=== PATIENT | female | born 1935 | race Caucasian/White ===

== ENCOUNTER 2018-05-17 22:32 | Inpatient (IN) | payer MEDICARE ==
[2018-05-17] MEDS ORDERED: NS 0.9% 1000 ML*IV.FLUID IV ONE (22:43)
--- NOTE | 2018-05-17 22:49 | ED ---
HPI Febrile Illness - HPI Summary HPI Summary: This patient is an 82 year old F brought in by ambulance from home to [facility] accompanied by her daughter with progressively worsening weakness, fatigue, and breathing. Daughter report vomiting earlier today with labored breathing. Overall she has noticed a decline in her mothers ability to get around the house. Patient denies current pain. - History of Current Complaint Time Seen by Provider: 05/17/18 22:43 Hx Obtained From: Patient, Family/Sourcing Assistant Onset/Duration: Started Days Ago Timing: Constant Initial Severity: Mild Current Severity: Severe Pain Intensity: 0 Pain Scale Used: 0-10 Numeric Associated Signs and Symptoms: SOB, Vomiting, Weakness - Additional Pertinent History Primary Care Physician: [id number] - Allergy/Home Medications Allergies/Adverse Reactions: Allergies Allergy/AdvReac Type Severity Reaction Status Date / Time lidocaine Allergy Mild Rash Verified 05/18/18 00:44 Sulfa (Sulfonamide Allergy Unknown Hives Verified 05/18/18 00:44 Antibiotics) PMH/Surg Hx/FS Hx/Imm Hx Endocrine/Hematology History: Denies: Hx Diabetes, Hx Systemic Lupus Erythematosus Cardiovascular History: Denies: Hx Congestive Heart Failure, Hx Hypertension, Hx Pacemaker/ICD History: Denies: Hx Dialysis, Hx Renal Disease Musculoskeletal History: Reports: Hx Gout Denies: Hx Rheumatoid Arthritis Sensory History: Reports: Hx Contacts or Glasses Denies: Hx Hearing Aid Opthamlomology History: Reports: Hx Contacts or Glasses Neurological History: Reports: Hx Dementia Psychiatric History: Denies: Hx Panic Disorder - Cancer History Cancer Type, Location and Year: LYMPHOMA 2009 ? dates Hx Chemotherapy: Yes - ? last dose [id number] - Surgical History Surgery Procedure, Year, and Place: TONSILS. LT KNEE REPLACEMENT. TUBAL LIGATION - Family History Known Family History: Negative: Cardiac Disease, Hypertension, Diabetes - Social History Alcohol Use: None Substance Use Type: Reports: None Hx Tobacco Use: No Smoking Status (MU): Former Smoker Review of Systems Positive: Fever, Fatigue Positive: Shortness Of Breath Positive: Vomiting Positive: Weakness All Other Systems Reviewed And Are Negative: Yes Physical Exam - Summary Physical Exam Summary: Appearance: ill appearing elderly women, quite slender almost cachectic with almost labored breating. Vital signs including hypotensive, tachycardic, and febrile Skin: Warm, dry, no obvious rash Eyes: sclera anicteric, no conjunctival pallor ENT: mucous membranes moist, pharynx appears normal Neck: Supple, nontender Respiratory: Clear to auscultation, diminish breath sounds on the right, breathing appears labored Cardiovascular: Tachycardic rate, Normal S1, S2. No murmurs. Normal distal pulses in tibial and radial bilaterally. Abdomen: Soft, nontender, normal active bowel sounds present Musculoskeletal: mild lower extremity edema non pitting, Neurological:awake and can answer simple questions, mentation is normal, speech is fluent and appropriate Psychiatric: affect is normal, does not appear anxious or depressed Triage Information Reviewed: Yes Vital Signs Reviewed: Yes Diagnostics - Laboratory Result Diagrams: 05/17/18 23:38 05/17/18 22:53 Lab Statement: Any lab studies that have been ordered have been reviewed, and results considered in the medical decision making process. - Radiology Cxr Radiology Interpretation Completed By: ED Physician Summary of Radiographic Findings: No acute disease. - EKG 2249 Cardiac Rate: Tachycardia - 121 EKG Rhythm: Sinus Rhythm Summary of EKG Findings: Probable right ventricular hypertrophy, ST is otherwise normal Course/Dx - Course Course Of Treatment: 82 year old F brought in by ambulance from home to [facility] accompanied by her daughter with progressively worsening weakness, fatigue, and breathing. Daughter report vomiting earlier today with labored breathing. Overall she has noticed a decline in her mothers ability to get around the house. Patient denies current pain. Upon exam patient appears ill and frail on gustavo borderline of cachectic. Her breathing is labored with diminished breath sound on the right. Patient is hypotensive, tachycardic, and febrile. She is able to answer simple questions. Sepsis protocol is immediately initiated at 22 :43. Patient is given 1500mls of IVF at 2243, iwth 50mls of ceftriaxone sodium and 250mls of azithromycin both at 2251. Bloodwork reveals WBC of 28.5, carbon dioxide of 14, and lactic acid of 5.2. UA is indicative of infection. Influenza testing is negative. CXR reveals no acute disease. EKG is tachycardic. Patient is additionally given another 1000mls of IV fluids at 0019 and again at 0121. 4000mcgs of Norepinepherine at 0230. Case discussed with hospitalist, Dr. Talamantes , who accepts for admission at 2338. - Diagnoses Provider Diagnoses: Sepsis, Urinary tract infection - Critical Care Time Critical Care Time: 30-74 min - 35 minutes Discharge - Sign-Out/Discharge Documenting (check all that apply): Patient Departure - admit - Discharge Plan Condition: Guarded Disposition: ADMITTED TO [facility] - Billing Disposition and Condition Condition: GUARDED Disposition: Admitted to [facility] - Attestation Statements Document Initiated by Arture: Yes Documenting Scribe: Sondra Jacobsen Provider For Whom Feli is Documenting (Include Credential): Micheal Lowe MD Scribdafne Attestation: Sondra Terry, artured for Micheal Lowe MD on 05/18/18 at 0508. Scribe Documentation Reviewed: Yes Provider Attestation: The documentation as recorded by the Sondra albrecht accurately reflects the service I personally performed and the decisions made by Micheal avila MD Status of Scribe Document: Viewed
[2018-05-17] MEDS ORDERED: cefTRIAXone(*) 1 GM in NS 0.9% 50 ML* 50 ML IVPB ONE (22:51)
[2018-05-17] MEDS ORDERED: Azithromycin IV(*) 500 MG in NS 0.9% 250 ML* 250 ML IVPB ONE (22:51)
--- OUTSIDE RECORDS SUMMARY | 2018-05-17 23:07 | XMS REPORT | Continuity of Care Document ---
:1935 External Reference #:[id number] Author Name Jania Draper Care Team Providers Name Role Phone Eamon Talamantes MD Primary Care Physician Unavailable Payers Type Date Identification Numbers Payment Provider Subscriber Policy Number: [id number] [facility] Medicare Solutions Ravin Mejia Group Number: [id number] [address] [address] PayID: [id number] [place] [address] Expires: 2013 Policy Number: [id number] Of [facility] Ravin Mejia PayID: [id number] [address] [address] [place] [address] Expires: 2013 Policy Number: [id number] Medicare Ravin Mejia PayID: [id number] [address] [place] [address] Advance Directives Description No Information Available Problems Date Description Provider Status Onset: 02/23/2016 Paroxysmal ventricular Eamon Talamantes, Active tachycardia Joel.Zach,FACP Onset: 02/23/2016 Primary degenerative dementia of Eamon Talamantes, Active the Alzheimer type, senile onset Joel.Zach,FACP Onset: 02/23/2016 T-cell lymphoma (clinical) Suman Waterman M.D.,FACP Onset: 07/14/2016 Paroxysmal supraventricular Eamon Talamantes, Active tachycardia M.DTimothy,FACP Onset: 07/23/2016 Hypothyroidism Suman Waterman M.D.,FACP Onset: 01/16/2018 Major depressive disorder, single Gee Maynard M.D. Active episode, unspecified Onset: 02/23/2016 Dementia Eamon Talamantes, Inactive GREY Patel Inactive: 02/23/2016 Family History Date Family Member(s) Problem(s) Comments General Cancer Father due to [place] () Father Heart Disease Mother Diabetes Type II : (age 82 Mother due to Diabetes Years) Second Daughter due to Lung () - smoker Cancer Siblings 7 3 now First Brother Coronary Artery Disease (CAD) First Brother due to Natural () Causes : (age 36 Second Brother due to Accidental Years) First Sister due to Diabetes () Second Sister Diabetes Type II Second Sister due to Dementia () - PSP Third Sister Parkinson's Disease Social History Type Date Description Comments Sex Unknown Marital Status Lives With 07/14/2016 Alone Occupation Retired oliving machine operator, [employer] Tobacco Use Start: Unknown Never Smoked Cigarettes Smoking Status Reviewed: 05/17/18 Never Smoked Cigarettes ETOH Use 02/23/2016 Denies alcohol use Tobacco Use Start: Unknown Patient has never smoked Recreational Drug Use Denies Drug Use Exercise Type/Frequency Does not exercise Allergies, Adverse Reactions, Alerts Date Description Reaction Status Severity Comments 02/23/2016 Sulfa Antibiotics skin rash Active Mild 06/21/2017 Sodium Active 04/21/2015 NKDA Inactive Medications Medication Date Status Form Strength Qnty SIG Indications Ordering Provider Escitalopram 05/17/ Active Tablets 5mg 30tabs 1 by mouth F32.9 Keren Oxalate 2019 every day MD Brenden Depend 05/17/ Active Misc 100uni for use [facility] 2019 ts three MD Brenden times a day Hand Held 05/17/ Active Misc 1units use wand Parkinsor Shower [place] 2019 daily when MD Brenden showering Donut Pillow 01/16/ Active 1units Use as M54.5 Gee Maynard M.D. Levothyroxine 11/20/ Active Tablets 75mcg 15tabs 1/2 by Eamon Martino 2018 mouth Zach Talamantes, every day. BAUTISTA PatelP Metoprolol 02/22/ Active Tablets ER 25mg 45tabs take Eamon Succinate ER 2016 24HR one-half Zahc Talamantes, tablet by Amanda,FACP mouth once daily Aspirin 02/18/ Active Tablets DR 81mg 30tabs 1 by mouth Other 2015 every day Ordering Provider Namenda XR 06/09/ Active Caps ER 28mg 90caps take one G30.1 Eamon 2015 24HR capsule by Zach Talamantes, mouth once M.D.,FACP daily Osteo Bi-Flex / Active Tablets 250-200mg 2 by mouth Unknown Regular 0000 every day Strength Meclizine HCL / Active Tablets 12.5mg 1 tab by Unknown 0000 mouth every 8 hours as needed Celery Seed / Active Tablet 2 po at Unknown 0000 every meal Black Vargas / Active Tablet 2 at every Unknown Concentrate 0000 meal. Iron / Active Tablets 325(65Fe) 1 by mouth Unknown 0000 mg every day Arthritis Pain / Active Tablets ER 650mg 2 by mouth Unknown Relief 0000 every day Macrobid 04/24/ Hx Capsules 100mg 14caps 1 by mouth Eamon 2018 - twice a Zach Talamantes, 05/01/ day MSoumya,FACP 2018 Escitalopram 01/16/ Hx Tablets 5mg 30tabs 1 by mouth F32.9 Gee Oxalate 2018 - every day Luisikara 04/10/ , Amanda 2018 Doxycycline 03/19/ Hx Capsules 100mg 2caps 2 cap one S10.86xA [place] Monohydrate 2017 - dose (pt Pachikara 04/18/ is not , M.DTimothy 2017 currently taking 04/02/17) Levothyroxine 07/23/ Hx Tablets 25mcg 30tabs Take One Eamon Sodium 2017 - Tablet By Zach Talamantes, 11/20/ Mouth Once M.D.,FACP 2018 Daily Vitamin C / Hx Chewtabs 500mg 2 by mouth Unknown 0000 - every day 2017 Medications Administered in Office Medication Date Status Form Strength Qnty SIG Indications Ordering Provider Triamcinolone 06/21/ Administered Injection Zaneb (Kenalog) 2017 MD Angelica Immunizations CPT Code Status Date Vaccine Lot # [id number] Given 03/22/2018 Influenza Virus Vaccine, Quadrivalent, Split, Preservative Free 04603 Given 03/22/2018 Pneumococcal Conjugate Vaccine 13 Valent For Intramuscular Use 70426 Given 03/22/2018 Pneumococcal Conjugate Vaccine 13 Valent For Intramuscular Use 19100 Given 03/22/2018 Fluzone High Dose 79031 Given 04/18/2017 Pneumococcal Conjugate Vaccine 13 Valent For [id number] Intramuscular Use 31463 Given 03/09/2017 Influenza Virus Vaccine, Quadrivalent, Split, Preservative Free 79733 Given 02/20/2016 Pneumonia Vaccine 82286 Given 02/20/2016 Influenza Virus Vaccine, Quadrivalent, Split, Preservative Free Vital Signs Date Vital Result Comment 05/17/2018 9:36am Height 60.25 inches 5'0.25" Weight 101.00 lb Heart Rate 49 /min BP Systolic 90 mmHg BP Diastolic 46 mmHg O2 % BldC Oximetry 85 % BMI (Body Mass Index) 19.6 kg/m2 04/11/2018 12:54pm Height 60.25 inches 5'0.25" Weight 101.00 lb with boots Heart Rate 82 /min BP Systolic Sitting 104 mmHg lue reg cuff BP Diastolic Sitting 70 mmHg lue reg cuff BP Systolic Standing 100 mmHg lue reg cuff BP Diastolic Standing 68 mmHg lue reg cuff BMI (Body Mass Index) 19.6 kg/m2 Ejection Fraction 45-50% echo. 04/30/2017 01/16/2018 9:03am Height 60.25 inches 5'0.25" Weight 100.00 lb Heart Rate 98 /min BP Systolic 122 mmHg BP Diastolic 78 mmHg O2 % BldC Oximetry 100 % BMI (Body Mass Index) 19.4 kg/m2 12/11/2017 8:59am Height 60.25 inches 5'0.25" Weight 102.38 lb Heart Rate 68 /min BP Systolic 100 mmHg BP Diastolic 62 mmHg BMI (Body Mass Index) 19.8 kg/m2 11/20/2017 10:13am Height 60.25 inches 5'0.25" Weight 102.00 lb Heart Rate 80 /min BP Systolic Sitting 110 mmHg BP Diastolic Sitting 68 mmHg Body Temperature 95.6 F O2 % BldC Oximetry 96 % BMI (Body Mass Index) 19.8 kg/m2 06/21/2017 11:09am Height 61 inches 5'1" Weight 104.00 lb Heart Rate 73 /min BP Systolic 102 mmHg BP Diastolic 80 mmHg Respiratory Rate 17 /min Body Temperature 97.5 F Pain Level 4 BMI (Body Mass Index) 19.6 kg/m2 06/05/2017 1:43pm Weight 104.00 lb Heart Rate 90 /min BP Systolic Sitting 100 mmHg BP Diastolic Sitting 58 mmHg Body Temperature 96.7 F O2 % BldC Oximetry 95 % 04/18/2017 8:43am Weight 106.00 lb Heart Rate 84 /min BP Systolic Sitting 116 mmHg BP Diastolic Sitting 84 mmHg Body Temperature 96.5 F O2 % BldC Oximetry 96 % 04/02/2017 8:24am Height 61 inches 5'1" Weight 106.00 lb with shoes Heart Rate 78 /min BP Systolic Sitting 126 mmHg LA reg cuff BP Diastolic Sitting 78 mmHg LA reg cuff BMI (Body Mass Index) 20.0 kg/m2 Ejection Fraction 50%-55% echo 02/18/16 03/19/2017 1:34pm Heart Rate 73 /min BP Systolic Sitting 110 mmHg BP Diastolic Sitting 58 mmHg Body Temperature 97.1 F O2 % BldC Oximetry 97 % 02/20/2017 10:48am Height 60.25 inches 5'0.25" Weight 104.00 lb Heart Rate 88 /min BP Systolic Sitting 100 mmHg BP Diastolic Sitting 64 mmHg Body Temperature 97.1 F O2 % BldC Oximetry 96 % BMI (Body Mass Index) 20.1 kg/m2 10/12/2016 9:43am Height 60.25 inches 5'0.25" Weight 107.12 lb Heart Rate 84 /min BP Systolic Sitting 106 mmHg BP Diastolic Sitting 68 mmHg Respiratory Rate 14 /min BMI (Body Mass Index) 20.7 kg/m2 07/14/2016 12:43pm Height 60.25 inches 5'0.25" Weight 105.50 lb Heart Rate 74 /min BP Systolic Sitting 112 mmHg BP Diastolic Sitting 64 mmHg Body Temperature 97.7 F O2 % BldC Oximetry 96 % BMI (Body Mass Index) 20.4 kg/m2 03/10/2016 10:51am Weight 105.38 lb Heart Rate 79 /min BP Systolic Sitting 96 mmHg LA Regular Cuff BP Diastolic Sitting 60 mmHg LA Regular Cuff BP Systolic Standing 102 mmHg LA Regular Cuff BP Diastolic Standing 60 mmHg LA Regular Cuff O2 % BldC Oximetry 97 % 02/23/2016 8:19am Height 60 inches 5'0" Weight 111.50 lb Heart Rate 82 /min BP Systolic Sitting 104 mmHg BP Diastolic Sitting 62 mmHg Body Temperature 96.9 F O2 % BldC Oximetry 98 % BMI (Body Mass Index) 21.8 kg/m2 12/07/2015 9:08am Height 61.5 inches 5'1.50" Weight 109.00 lb Heart Rate 80 /min BP Systolic Sitting 110 mmHg BP Diastolic Sitting 64 mmHg Respiratory Rate 16 /min BMI (Body Mass Index) 20.3 kg/m2 06/09/2015 2:06pm Height 61.5 inches 5'1.50" Weight 108.00 lb Heart Rate 68 /min BP Systolic Sitting 104 mmHg BP Diastolic Sitting 70 mmHg Respiratory Rate 14 /min BMI (Body Mass Index) 20.1 kg/m2 04/21/2015 2:49pm Height 61.5 inches 5'1.50" Weight 110.00 lb Heart Rate 80 /min BP Systolic Sitting 120 mmHg BP Diastolic Sitting 72 mmHg Respiratory Rate 16 /min BMI (Body Mass Index) 20.4 kg/m2 Results Test Date Facility Test Result H/L Range Note Urinalysis Profile 04/23/2018 [facility] Urine Color [place] [address] [place] [address] [phone] Urine Appearance Turbid Urine Specific [place] 1.018 N 1.010-1.030 Urine pH 5.0 N 5-9 Urine Urobilinogen Negative Negative Urine Ketones Negative Negative Urine Protein Negative Negative Urine Leukocytes 2+ Abnormal Negative Urine Blood 1+ Abnormal Negative * * Abnormal Negative 1 Urine Nitrite Negative Negative Urine Bilirubin Negative Negative Urine Glucose Negative Negative Urine White Blood Cell 3+(>20/hpf) Abnormal Absent Urine Red Blood Cell 1+(3-5/hpf) Abnormal Absent Urine Bacteria 2+ Abnormal Absent Urine Squamous Epithelial Cell Present Abnormal Absent Urine Calcium Oxalate Cryst Present Abnormal Absent Urine Culture And 04/23/2018 [facility] Urine Culture SEE RESULT [address] [place] [address] [phone] Laboratory test 02/21/2018 [facility] TSH (Thyroid 1.95 mcIU/mL N 0.34-[address]orm) .60 [place] [address] [phone] Free T4 (Free Thyroxine) 1.06 ng/dL N 0.61-1.12 CBC Auto Diff 02/21/2018 [facility] White Blood 9.4 10^3/uL N 3.5-10.[address] [place] [address] [phone] Red Blood Count 3.45 10^6/uL Low 4.00-5.40 Hemoglobin 10.7 g/dL Low 12.0-16.0 Hematocrit 33 % Low 35-47 Mean Corpuscular Volume 94 fL N 80-97 Mean Corpuscular Hemoglobin 31 pg N 27-31 Mean Corpuscular HGB Conc 33 g/dL N 31-36 Red Cell Distribution Width 14 % N 10.5-15 Platelet Count 171 10^3/uL N 150-450 Mean Platelet Volume 7.9 um3 N 7.4-10.4 Abs Neutrophils 5.8 10^3/uL N 1.5-7.7 Abs Lymphocytes 2.1 10^3/uL N 1.0-4.8 Abs Monocytes 1.4 10^3/uL High 0-0.8 Abs Eosinophils 0.1 10^3/uL N 0-0.6 Abs Basophils 0 10^3/uL N 0-0.2 Abs Nucleated RBC 0 10^3/uL Granulocyte % 61.1 % N 38-83 Lymphocyte % 22.7 % Low 25-47 Monocyte % 14.8 % High 0-7 Eosinophil % 1.0 % N 0-6 Basophil % 0.4 % N 0-2 Nucleated Red Blood Cells % 0 Laboratory 11/16/2017 [facility] TSH (Thyroid 5.98 High 0.34- 5.60 3 test finding [address] Stim Horm) mcIU/[place] [address] [phone] Lipid Profile 11/16/2017 [facility] Triglycerides 183 mg/dL 4 (Trig/Chol/HDL [address] ) [place] [address] [phone] Cholesterol 143 mg/dL 5 HDL Cholesterol 24.9 mg/dL 6 LDL Cholesterol 82 mg/dL 7 Laboratory test 11/16/2017 [facility] Glucose 88 mg/dL N 70- 100 [address] [place] [address] [phone] CBC Auto Diff 06/05/2017 [facility] White Blood 10.8 N 3.5- 10.[address] Count 10^3/[place] [address] [phone] Red Blood Count 3.49 10^6/uL Low 4.0-5.4 Hemoglobin 10.9 g/dL Low 12.0-16.0 Hematocrit 33 % Low 35-47 Mean Corpuscular Volume 93 fL N 80-97 Mean Corpuscular Hemoglobin 31 pg N 27-31 Mean Corpuscular HGB Conc 34 g/dL N 31-36 Red Cell Distribution Width 13 % N 10.5-15 Platelet Count 283 10^3/uL N 150-450 Mean Platelet Volume 8 um3 N 7.4-10.4 Abs Neutrophils 5.7 10^3/uL N 1.5-7.7 Abs Lymphocytes 3.0 10^3/uL N 1.0-4.8 Abs Monocytes 2.0 10^3/uL High 0-0.8 Abs Eosinophils 0.1 10^3/uL N 0-0.6 Abs Basophils 0.1 10^3/uL N 0-0.2 Abs Nucleated RBC 0 10^3/uL Granulocyte % 52.3 % N 38-83 Lymphocyte % 28.0 % N 25-47 Monocyte % 18.7 % High 1-9 Eosinophil % 0.5 % N 0-6 Basophil % 0.5 % N 0-2 Nucleated Red Blood Cells % 0 Laboratory test 06/05/2017 [facility] Erythrocyte Sed 81 mm/Hr High 0-[address] [place] [address] [phone] Basic Metabolic 06/05/2017 [facility] Sodium 139 N 133-[address] mmol/[place] [address] [phone] Potassium 4.6 mmol/L N 3.5-5.0 Chloride 106 mmol/L N 101-111 Co2 Carbon Dioxide 25 mmol/L N 22-32 Anion Gap 8 mmol/L N 2-11 Glucose 95 mg/dL N 70-100 Blood Urea Nitrogen 25 mg/dL High 6-24 Creatinine 1.30 mg/dL High 0.51-0.95 BUN/Creatinine Ratio 19.2 N 8-20 Calcium 9.1 mg/dL N 8.6-10.3 Egfr Non- 39.5 >60 Egfr 50.8 >60 9 Lyme Western 04/18/2017 [facility] Lyme Disease Positive Negative Blot [address] [place] [place] [address] [phone] Lyme Disease IgG Bands Present See Comment kDa 10 Lyme Disease IgM Ab WB Negative Negative Lyme Disease IgM Bands Present No bands detecte <SEE NOTE> kDa 11 Lyme Disease Interpretation See Comment 12 Laboratory 04/18/2017 [facility] Lyme Disease Positive Negative 13 test finding [facility] [place] [address] [phone] Laboratory 10/26/2016 [facility] TSH (Thyroid 3.71 N 0.34- 5.[address] Stim Horm) mcIU/[place] [address] [phone] Lipid Profile 07/22/2016 [facility] Triglycerides 206 mg/dL N 14 (Trig/Chol/HDL [facility] ) [place] [address] [phone] Cholesterol 124 mg/dL N 15 HDL Cholesterol 22.4 mg/dL N 16 LDL Cholesterol 60 mg/dL N 17 Basic Metabolic Panel 07/22/2016 [facility] Sodium 137 mmol/L N 133-145 [place] [address] [phone] Potassium 4.0 mmol/L N 3.5-5.0 Chloride 105 mmol/L N 101-111 Co2 Carbon Dioxide 28 mmol/L N 22-32 Anion Gap 4 mmol/L N 2-11 Glucose 90 mg/dL N 70-100 Blood Urea Nitrogen 23 mg/dL N 6-24 Creatinine 1.00 mg/dL High 0.51-0.95 BUN/Creatinine Ratio 23.0 High 8-20 Calcium 8.8 mg/dL N 8.6-10.3 Egfr Non- 53.6 N >60 Egfr 69.0 N >60 18 Laboratory test 07/22/2016 [facility] TSH (Thyroid 6.32 High 0.34-5.60 [address] [facility] [address] Stim Horm) mcIU/[place] [address] [phone] Laboratory test 04/21/2015 [facility] TSH (Thyroid 6.93 ?IU/mL High 0.34-5.60 [address] [facility] [address] Stim Horm) [place] [address] [phone] Vitamin B12 363 pg/mL N 180-914 21 1 *Ascorbic acid is present which may interfere with detection of blood. 2 SEE RESULT BELOW Name: RAVIN MEJIA : [address]: Lucina Talamantes MD Acct: [id number] Unit: [id number] AGE: 82 Location: [facility] Re04/23/18 SEX: F Status: REG REF SPEC: [id number] SUE: 04/23/[address]: Eamon Talamantes MD REQ: [id number] RECD: 04/23/18 STATUS: COMP _ SOURCE: URINE SPDESC: ORDERED: Urine Culture Procedure Result Reported Site Urine Culture Final 04/25/18- 0951 ML Organism 1 ESCHERICHIA COLI [place] Count >100,000 (Many) CFU/ML 1. ESCHERICHIA COLI M.I.C. RX --------- ------ Ampicillin <=2 S Cefazolin <=4 S Cefepime <=1 S Ceftriaxone <=1 S Ciprofloxacin <=0.25 S Gentamicin <=1 S Levofloxacin <=0.12 S Meropenem <=0.25 S Nitrofurantoin <=16 S Tetracycline <=1 S Pipercillin/Tazobactam <=4 S Trimethoprim/Sulfamethoxazole <=20 S Amoxicillin/Clavulanic Acid <=2 S Aztreonam <=1 S Contact the Microbiology Department for any additional antibiotic reporting. * ML - Main Lab . END OF REPORT DEPARTMENT OF PATHOLOGY, [address] [place] [address] Bud Florence M.D. Director [facility] # [id number] 3 FASTING 10 HOUR 4 Desirable: <150 Borderline High: 150-199 High: 200-499 Very High: >500 5 Desirable: <200 Borderline High: 200-239 High: >239 6 Low: <40 Desirable: 40-60 High: >60 7 Desirable: <100 Near Optimal: 100-129 Borderline High: 130-159 High: 160-189 Very High: >189 8 FASTING 10 HOUR 9 Because ethnic data is not always readily available, this report includes an eGFR for both -Americans and non- Americans. The National Kidney Disease Education Program (NKDEP) does not endorse the use of the MDRD equation for patients that are not between the ages of 18 and 70, are , have extremes of body size, muscle mass, or nutritional status, or are non- or non-. 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 ADDITIONAL INFORMATION CDC criteria require >=5 bands for IgG or >=2 bands for IgM for the Immunoblot to be considered positive. Bands (e.g.,p41) may be detected in patients without Lyme disease, and patterns not meeting the CDC criteria should be interpreted with caution. Immunoblot should be ordered only on specimens that are positive or equivocal by a FDA-licensed Lyme disease antibody screening test (e.g., EIA). Test Performed by: [place] [id number] 13 Not diagnostic. Supplemental testing ordered by reflex. Test Performed by: [place] [id number] 14 Desirable <150 Borderline high 150-199 High 200-499 Very High >500 15 Desirable <200 Borderline high 200-239 High >239 16 Low <40 Desirable: 40-60 High: >60 17 Desirable: <100 mg/dL Near Optimal: 100-129 mg/dL Borderline High: 130-159 mg/dL High: 160-189 mg/dL Very High: >189 mg/dL 18 Because ethnic data is not always readily available, this report includes an eGFR for both -Americans and non- Americans. The National Kidney Disease Education Program (NKDEP) does not endorse the use of the MDRD equation for patients that are not between the ages of 18 and 70, are , have extremes of body size, muscle mass, or nutritional status, or are non- or non-. According to the National Kidney Foundation, irrespective of diagnosis, the stage of the disease is based on the level of kidney function: Stage Description GFR(mL/min/1.73 m(2)) 1 Kidney damage with normal or decreased GFR 90 2 Kidney damage with mild decrease in GFR 60-89 3 Moderate decrease in GFR 30-59 4 Severe decrease in GFR 15-29 5 Kidney failure <15 (or dialysis) 19 FASTING 10 HOUR 20 Copy Result to: ISIDORO MELTON ([id number]) 21 Normal Range 180 to 914 Indeterminate Range 145 to 180 Deficient Range <145 Procedures Date Code Description Status 04/11/2018 48338 EKG Tracing & Interpretation Completed 06/21/2017 93277 Inject/Drain Joint/Bursa Major W/O US Completed 04/30/2017 83458 ECHO Transthoracic, Real-Time 2D With Doppler And Color Completed Flow 04/30/2017 76439 ECHO Transthoracic, Real-Time 2D With Doppler And Color Completed Flow 04/02/2017 96078 EKG Tracing & Interpretation Completed 03/10/2016 17466 EKG Tracing & Interpretation Completed 02/29/2016 71993 Holter Monitor Review (24 hr)dr review & interp only Completed 02/28/2016 03553 ECG Monitor/Recording W/Visual Superimposition Scanning Completed 02/18/2016 78843 ECHO Transthorasic Realtime 2D W Doppler & Color Flow Hosp Completed 01/11/2009 63592 ECHO Transthorasic Realtime 2D W Doppler & Color Flow Hosp Completed Encounters Type Date Location Provider Dx Diagnosis Office Visit 05/17/2018 [facility] Internal Keren Wilcox MD R62.7 Adult failure to 9:40a Medicine - thrive [place] E03.9 Hypothyroidism, unspecified I47.1 Supraventricular tachycardia G30.1 Alzheimer's disease with late onset K59.00 Constipation, unspecified F33.9 Major depressive disorder, recurrent, unspecified Office Visit 04/11/2018 Kathy Jimenez I42.9 Cardiomyopathy, 1:20p Cardiology Of Amanda Broderick unspecified [facility] R94.31 Abnormal electrocardiogram [ECG] [EKG] R06.02 Shortness of breath I34.0 Nonrheumatic mitral (valve) insufficiency I35.1 Nonrheumatic aortic (valve) insufficiency Office Visit 01/16/2018 9:00a [facility] Internal Gee Maynard, M54.5 Low back Medicine - M.DTimothy pain [place] F32.9 Major depressive disorder, single episode, unspecified Office Visit 12/11/2017 Neurohospitalist Sterling Jimenez G30.1 Alzheimer's 9:00a Clinic Amanda Luis disease with late onset Office Visit 11/20/2017 [facility] Internal Medicine Eamon Serrano Z00.01 Encounter for 10:20a - Barbara Talamantes general adult Joel.Zach,FACP medical exam w abnormal findings M75.122 Complete rotatr-cuff tear/ruptr of left shoulder, not trauma E03.9 Hypothyroidism, unspecified C84.Z8 Oth mature T/NK-cell lymphomas, lymph nodes mult site Office Visit 06/21/2017 Orthopedic Brenda Dominguez, 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 shoulder M75.122 Complete rotatr-cuff tear/ruptr of left shoulder, not trauma M25.412 Effusion, left shoulder Office Visit 06/05/2017 1:40p [facility] Internal Eamon Serrano R53.83 Other fatigue Jasmina Talamantes M.D.,FACP [place] R05 Cough M75.52 Bursitis of left shoulder Office Visit 04/18/2017 8:40a [facility] Internal Eamon Serrano A69.20 Lyme disease, [facility] M.D.,[facility] unspecified [address] D48.5 Neoplasm of uncertain behavior of skin Z23 Encounter for immunization Office Visit 04/02/2017 Gigi Crocker STimothy I42.9 Cardiomyopathy, 8:40a Cardiology Amanda Broderick unspecified I45.10 Unspecified right bundle-branch block R94.31 Abnormal electrocardiogram [ECG] [EKG] R53.83 Other fatigue R06.02 Shortness of breath 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 other specified [address] part of neck, init encntr Office Visit 02/20/2017 [facility] Internal Do Ramirez, J06.9 Acute upper 10:50a Jasmina Conley M.D. respiratory [place] infection, unspecified H61.23 Impacted cerumen, bilateral Office Visit 10/12/2016 Neurohospitalist Sterling Jimenez G30.1 Alzheimer's 9:45a Clinic Amanda Luis disease with late onset Office Visit 07/14/2016 [facility] Internal Medicine Eamon Serrano Z00.01 Encounter for 1:00p - [place] [facility] adult Joel.Zach,FACP medical exam w abnormal findings I47.1 Supraventricular tachycardia G30.1 Alzheimer's disease with late onset C84.Z8 Oth mature T/NK-cell lymphomas, lymph nodes [facility] E03.9 Hypothyroidism, unspecified Office Visit 03/10/2016 Cardiology Obi S. I47.1 Supraventricular 11:00a Services Of Genoveva Broderick M.D. tachycardia AT [place] R55 Syncope and collapse I42.9 Cardiomyopathy, unspecified I45.10 Unspecified right bundle-branch block R94.31 Abnormal electrocardiogram [ECG] [EKG] Office Visit 02/23/2016 8:00a [facility] Internal Eamon Serrano I47.2 Ventricular Medicine - Amanda Talamantes,FACP tachycardia [address] G30.1 Alzheimer's disease with late onset C84.Z8 Oth mature T/NK-cell lymphomas, [place] nodes [facility] [place] Office Visit 02/19/2016 4:27p [facility] Eamon Serrano R55 [facility],jose Talamantes M.D.,[facility] collapse Hospitalists I47.1 Supraventricular tachycardia R79.89 Other specified abnormal findings of blood chemistry Office Visit 02/18/2016 4:26p [facility] Shannon Piña, R55 [facility],jose Patel collapse Hospitalists R74.8 Abnormal levels of other serum enzymes R79.89 Other specified abnormal findings of blood chemistry I47.1 Supraventricular tachycardia Office Visit 02/18/2016 10:35a [facility] Obi STimothy R55 Syncope and Amanda Broderick collapse I47.1 Supraventricular tachycardia I51.9 Heart disease, unspecified Office Visit 02/17/2016 4:25p [facility] Maggie Frazier R55 [facility],jose Sarabia NP collapse Hospitalists R74.8 Abnormal levels of other serum enzymes R79.89 Other specified abnormal findings of blood chemistry F03.90 Unspecified dementia without behavioral disturbance Office Visit 12/07/2015 9:00a [facility] Sterling Jimenez G30.1 [facility] Amanda Luis disease with late onset Office Visit 06/09/2015 2:30p [facility] Sterling Jimenez G30.1 [facility] Amanda Luis disease with late onset Office Visit 04/21/2015 3:00p [facility] Sterling Jimenez F03.90 Unspecified [facility] Amanda Luis dementia without behavioral disturbance Plan of Treatment Future Appointment(s):12/11/2018 9:15 am - Sterling Luis M.D. at [facility]05/17/2018 - Keren Wilcox, MDR62.7 Adult failure to thriveReferral:[facility]/ Nurse SpecE03.9 Hypothyroidism, unspecifiedFollow up:Continue same dose medsI47.1 Supraventricular tachycardiaFollow up:Continue [id number] Alzheimer's disease with late onsetFollow up:F/U with in home evalK59.00 Constipation, unspecifiedFollow up:Use over the counter colace to helpF33.9 Major depressive disorder, recurrent, unspecifiedFollow up:Start antidepression medication F/U 3 months
[2018-05-17 23:22] LABS: Urine Appearance Cloudy; Urine Bacteria 2+ (Absent); Urine Bilirubin Negative (Negative); Urine Blood 2+ (Negative); Urine Color Amber; Urine Glucose Negative (Negative); Urine Granular Casts Present (Absent); Urine Ketones Negative (Negative); Urine Nitrite Negative (Negative); Urine Protein Negative (Negative); Urine Red Blood Cell 2+(6-10/hpf) (Absent); Urine Specific Gravity 1.016 (1.010-1.030); Urine Urobilinogen Negative (Negative); Urine White Blood Cell 3+(>20/hpf) (Absent)
[2018-05-17] MEDS ORDERED: NS 0.9% 1000 ML* 1,000 ML IV SCH (23:45)
[2018-05-18 00:16] LABS: Albumin 2.5 g/dL (3.2-5.2); Albumin/Globulin Ratio 1.2 (1-3); BUN/Creatinine Ratio 36.7 (8-20); Calcium 7.9 mg/dL (8.6-10.3); EGFR Non-African American 33.4 (>60); Globulin 2.1 g/dL (2-4); Total Bilirubin 0.5 mg/dL (0.2-1.0); Total Protein 4.6 g/dL (6.4-8.9)
[2018-05-18 00:19] LABS: Hematocrit 26 % (35-47); Mean Corpuscular HGB Conc 31 g/dl (31-36); Mean Corpuscular Hemoglobin 32 pg (27-31); Mean Corpuscular Volume 103 fL (80-97); Mean Platelet Volume 9.9 fL (7.4-10.4); Platelet Count 65 10^3/ul (150-450); Red Blood Count 2.53 10^6/ul (4.00-5.40); Red Cell Distribution Width 20 % (10.5-15); White Blood Count 28.5 10^3/ul (3.5-10.8)
[2018-05-18] MEDS ORDERED: NS 0.9% 1000 ML* 1,000 ML IV SCH ×2 (00:19→01:21)
[2018-05-18 00:24] LABS: Activated Partial Thrombo Time 47.7 seconds (26.0-36.3); INR 1.33 (0.77-1.02)
[2018-05-18 00:41] LABS: Potassium 5.2 mmol/L (3.5-5.0)
[2018-05-18 00:57] LABS: Immature Granulocytes 9 % (0-9); Lymphocytes % 16 %; Metamyelocytes % 2 % (0-2); Monocytes % 4 %; Myelocytes % 2 % (0-1); Neutrophil % 71 %
[2018-05-18 01:00] LABS: ABS Neutrophils 22.8 10^3/ul (1.5-7.7)
[2018-05-18] MEDS ORDERED: Norepinephrine 16MCG/ML IVPRE* 4,000 MCG/250 ML BAG IV SCH ×3 (02:30)
[2018-05-18] MEDS ORDERED: Norepinephrine VIAL* 4 MG in NS 0.9% 250 ML* 246 ML IVPB SCH ×3 (03:00→07:00)
[2018-05-18] MEDS ORDERED: VASOPRESSIN 20 UNITS/ML 1 ML VIAL ONE (03:45)
[2018-05-18] MEDS ORDERED: Vasopressin* 100 UNITS in D5W 250 ML BAG IVPB SCH (04:00)
--- NOTE | 2018-05-18 04:29 | OP ---
Operative Report - Blank - Operative Report Date of Operation: 05/18/18 Note: Central Venous Catheter (CVC, Central Line) Placement Date: 05/18/18 Time: 4:00am Indication: Hemodynamic monitoring/Intravenous access Attending: Regino Oneal time-out was completed verifying correct patient, procedure, site, positioning , and special equipment if applicable. The patient was placed in a dependent position appropriate for central line placement based on the vein to be cannulated. The patients left neck was prepped and draped in sterile fashion. 1 % Lidocaine was used to anesthetize the surrounding skin area. A triple lumen 7- Panamanian catheter was introduced into the the internal jugular using the Seldinger technique and under ultrasound guidance. The catheter was threaded smoothly over the guide wire and appropriate blood return was obtained. Each lumen of the catheter was evacuated of air and flushed with sterile saline. The catheter was then sutured in place to the skin and a sterile dressing applied. Perfusion to the extremity distal to the point of catheter insertion was checked and found to be adequate. Estimated Blood Loss: None The patient tolerated the procedure well and there were no complications.
[2018-05-18] MEDS: Lactated Ringers 1000 ML Bag* 1,000 ML IV SCH ×2 (05:00→07:39)
[2018-05-18] MEDS ORDERED: Levothyroxine TAB* 25 MCG TAB PO SCH (06:00)
--- NOTE | 2018-05-18 06:02 | PN ---
Progress Note - Progress Note Date of Service: 05/18/18 Note: Sepsis reassessment note; severe sepsis Patient assessed at midnight, alert, talking, BP in 100/60 range. This dropped to 70/30 upon going to ICU. Assessed patient, mucous membranes dry, skin turgor poor. Needs further fluid resucitation, received another liter bolus NS. Reassessed patient at 2AM, BP again 70/30 range. Still mentating, has made about 200 ml urine since entering ER. Started patient on myrna drip after discussion with family. At 3AM, BP not at target with myrna at 4 mcg/min. Discussed case with Dr. Lacy. He came to see patient, placed central access. Patient now on Vasopressin in addition to myrna.
[2018-05-18 06:18] LABS: BUN/Creatinine Ratio 33.8 (8-20); Calcium 6.9 mg/dL (8.6-10.3); EGFR Non-African American 31.7 (>60); Hematocrit 20 % (35-47); Mean Corpuscular HGB Conc 31 g/dl (31-36); Mean Corpuscular Hemoglobin 31 pg (27-31); Mean Corpuscular Volume 101 fL (80-97); Mean Platelet Volume 9.9 fL (7.4-10.4); Platelet Count 63 10^3/ul (150-450); Potassium 4.5 mmol/L (3.5-5.0); Red Blood Count 1.94 10^6/ul (4.00-5.40); Red Cell Distribution Width 20 % (10.5-15); White Blood Count 64.2 10^3/ul (3.5-10.8)
[2018-05-18 06:54] LABS: Lymphocytes % 2 %; Metamyelocytes % 2 % (0-2); Monocytes % 2 %; Neutrophil % 76 %
[2018-05-18 06:55] LABS: Immature Granulocytes 20 % (0-9); Myelocytes % 1 % (0-1)
[2018-05-18] MEDS ORDERED: Lactated Ringers 1000 ML Bag* 500 ML IV ONE (08:15)
[2018-05-18] MEDS ORDERED: LORazepam INJ* 2 MG/ML 1 ML VIAL IV PUSH PRN (08:26)
[2018-05-18] MEDS ORDERED: Ondansetron INJ* 2 MG/ML VIAL IV PRN (08:26)
--- NOTE | 2018-05-18 08:48 | PN ---
Date of Service: 05/18/18 Critical Care Services: 82F with dementia presents with septic shock 2/2 uti, possible gi bleed. 05/18: Lab work becoming progressively worse. Discussed with family at bedside. Comfort care. No morphine. Vital Signs: Temp Pulse Resp BP SpO2 FiO2 99.1 F 108 27 80/51 95 100 05/18/18 06:30 05/18/18 06:30 05/18/18 06:30 05/18/18 06:30 05/18/18 06:30 05/18 03:21 Physical Exam: Gen - acutely ill heent - ncat, eomi neck - no jvd cv - s1/s2, tachy lungs - cta, dec bs at bases abd - soft, +mild tenderness ext - no cce neuro - non-focal Fluid Balance (Past 24 Hours): I= O= Net Intake & Output 05/16/18 05/17/18 05/18/18 05/19/18 06:59 06:59 06:59 06:59 Intake Total 4096 Output Total 90 Balance 4006 Weight 45.178 kg Intake: IV Fluids 3868 NS 2068 Medicated IV 168 levophed 152 vasopressin 16 Oral 60 Mckeon Irrigate Amount 0 Output: Mckeon 90 Labs: Laboratory Results - last 24 hr 05/17/18 05/17/18 05/17/18 22:53 22:53 22:53 WBC RBC Hgb Hct MCV MCH MCHC RDW Plt Count MPV Neut % (Auto) Lymph % (Auto) Martin % (Auto) Eos % (Auto) Baso % (Auto) Absolute Neuts (auto) Absolute Lymphs (auto) Absolute Monos (auto) Absolute Eos (auto) Absolute Basos (auto) Absolute Nucleated RBC Immature Gran % Neutrophils % Band Neutrophils % Lymphocytes % Monocytes % Metamyelocytes % Myelocytes % Nucleated RBC % Abs Neuts (Manual) Abs Lymphs (Manual) Abs Monocytes (Manual) Normal RBC Morphology Macrocytosis INR (Anticoag Therapy) 1.33 H APTT 47.7 H Sodium 135 Potassium 5.2 H Chloride 112 H Carbon Dioxide 14 L* Anion Gap 9 BUN 55 H Creatinine 1.50 H Est GFR ( Amer) 40.4 Est GFR (Non-Af Amer) 33.4 BUN/Creatinine Ratio 36.7 H Glucose 106 H Lactic Acid 5.2 H* Calcium 7.9 L Total Bilirubin 0.50 AST 10 L ALT 5 L Alkaline Phosphatase 74 Troponin I 0.01 Total Protein 4.6 L Albumin 2.5 L Globulin 2.1 Albumin/Globulin Ratio 1.2 Urine Color Urine Appearance Urine pH Ur Specific [place] Urine Protein Urine Ketones Urine Blood Urine Nitrate Urine Bilirubin Urine Urobilinogen Ur Leukocyte Esterase Urine WBC (Auto) Urine RBC (Auto) Urine Bacteria Hyaline Casts Granular Casts Urine Glucose Influenza A (Rapid) Influenza B (Rapid) Blood Type Crossmatch 05/17/18 05/17/18 05/18/18 23:00 23:38 01:39 WBC 28.5 H RBC 2.53 L Hgb 8.0 L Hct 26 L MCV 103 H MCH 32 H MCHC 31 RDW 20 H Plt Count 65 L MPV 9.9 Neut % (Auto) Not Reportable Lymph % (Auto) Not Reportable Martin % (Auto) Not Reportable Eos % (Auto) Not Reportable Baso % (Auto) Not Reportable Absolute Neuts (auto) Not Reportable Absolute Lymphs (auto) Not Reportable Absolute Monos (auto) Not Reportable Absolute Eos (auto) Not Reportable Absolute Basos (auto) Not Reportable Absolute Nucleated RBC Not Reportable Immature Gran % 9 Neutrophils % 71 Band Neutrophils % 5 Lymphocytes % 16 Monocytes % 4 Metamyelocytes % 2 Myelocytes % 2 H Nucleated RBC % Not Reportable Abs Neuts (Manual) 22.8 H Abs Lymphs (Manual) 4.56 Abs Monocytes (Manual) 1.14 H Normal RBC Morphology Not Reportable Macrocytosis 1+ INR (Anticoag Therapy) APTT Sodium Potassium Chloride Carbon Dioxide Anion Gap BUN Creatinine Est GFR ( Amer) Est GFR (Non-Af Amer) BUN/Creatinine Ratio Glucose Lactic Acid Calcium Total Bilirubin AST ALT Alkaline Phosphatase Troponin I Total Protein Albumin Globulin Albumin/Globulin Ratio Urine Color [place] Urine Appearance Cloudy Urine pH 5.0 Ur Specific [place] 1.016 Urine Protein Negative Urine Ketones Negative Urine Blood 2+ A Urine Nitrate Negative Urine Bilirubin Negative Urine Urobilinogen Negative Ur Leukocyte Esterase 2+ A Urine WBC (Auto) 3+(>20/hpf) A Urine RBC (Auto) 2+(6-10/hpf) A Urine Bacteria 2+ A Hyaline Casts Present A Granular Casts Present A Urine Glucose Negative Influenza A (Rapid) Negative Influenza B (Rapid) Negative Blood Type Crossmatch 05/18/18 05/18/18 05/18/18 03:10 05:50 05:50 WBC 64.2 H RBC 1.94 L Hgb 6.0 L* Hct 20 L MCV 101 H MCH 31 MCHC 31 RDW 20 H Plt Count 63 L MPV 9.9 Neut % (Auto) Not Reportable Lymph % (Auto) Not Reportable Martin % (Auto) Not Reportable Eos % (Auto) Not Reportable Baso % (Auto) Not Reportable Absolute Neuts (auto) Not Reportable Absolute Lymphs (auto) Not Reportable Absolute Monos (auto) Not Reportable Absolute Eos (auto) Not Reportable Absolute Basos (auto) Not Reportable Absolute Nucleated RBC Not Reportable Immature Gran % 20 H Neutrophils % 76 Band Neutrophils % 17 H Lymphocytes % 2 Monocytes % 2 Metamyelocytes % 2 Myelocytes % 1 Nucleated RBC % Not Reportable Abs Neuts (Manual) Abs Lymphs (Manual) Abs Monocytes (Manual) Normal RBC Morphology Not Reportable Macrocytosis 1+ INR (Anticoag Therapy) APTT Sodium 136 Potassium 4.5 Chloride 115 H Carbon Dioxide 11 L* Anion Gap 10 BUN 53 H Creatinine 1.57 H Est GFR ( Amer) 38.4 Est GFR (Non-Af Amer) 31.7 BUN/Creatinine Ratio 33.8 H Glucose 93 Lactic Acid 4.9 H* Calcium 6.9 L Total Bilirubin AST ALT Alkaline Phosphatase Troponin I Total Protein Albumin Globulin Albumin/Globulin Ratio Urine Color Urine Appearance Urine pH Ur Specific [place] Urine Protein Urine Ketones Urine Blood Urine Nitrate Urine Bilirubin Urine Urobilinogen Ur Leukocyte Esterase Urine WBC (Auto) Urine RBC (Auto) Urine Bacteria Hyaline Casts Granular Casts Urine Glucose Influenza A (Rapid) Influenza B (Rapid) Blood Type Crossmatch 05/18/18 05:50 WBC RBC Hgb Hct MCV MCH MCHC RDW Plt Count MPV Neut % (Auto) Lymph % (Auto) Martin % (Auto) Eos % (Auto) Baso % (Auto) Absolute Neuts (auto) Absolute Lymphs (auto) Absolute Monos (auto) Absolute Eos (auto) Absolute Basos (auto) Absolute Nucleated RBC Immature Gran % Neutrophils % Band Neutrophils % Lymphocytes % Monocytes % Metamyelocytes % Myelocytes % Nucleated RBC % Abs Neuts (Manual) Abs Lymphs (Manual) Abs Monocytes (Manual) Normal RBC Morphology Macrocytosis INR (Anticoag Therapy) APTT Sodium Potassium Chloride Carbon Dioxide Anion Gap BUN Creatinine Est GFR ( Amer) Est GFR (Non-Af Amer) BUN/Creatinine Ratio Glucose Lactic Acid Calcium Total Bilirubin AST ALT Alkaline Phosphatase Troponin I Total Protein Albumin Globulin Albumin/Globulin Ratio Urine Color Urine Appearance Urine pH Ur Specific [place] Urine Protein Urine Ketones Urine Blood Urine Nitrate Urine Bilirubin Urine Urobilinogen Ur Leukocyte Esterase Urine WBC (Auto) Urine RBC (Auto) Urine Bacteria Hyaline Casts Granular Casts Urine Glucose Influenza A (Rapid) Influenza B (Rapid) Blood Type B Positive Crossmatch See Detail Studies: CXR 05/17 Pending Impression: 82F with dementia presents with septic shock 2/2 uti, possible gi bleed. Plan: Discussed with family extensively at bedside. Patient DNR/DNI. Comfort measures. No mophine. Critical Care Time: 65 mins
--- NOTE | 2018-05-18 08:53 | PN ---
Sepsis Event Evaluation Date of Evaluation: 05/18/18 Time of Evaluation: 07:00 Current Stage of Sepsis: Septic Shock Vital Signs - Last 12 Hours: Vital Signs - 12 hr Temp Pulse Resp BP Pulse Ox 05/18/18 06:30 99.1 F 108 27 80/51 95 05/18/18 06:22 99.1 F 111 28 72/47 95 05/18/18 06:15 99.0 F 111 30 96 05/18/18 06:01 98.8 F 112 29 90/31 97 05/18/18 06:00 98.8 F 110 29 98 05/18/18 05:46 98.6 F 115 27 104/53 99 05/18/18 05:30 98.8 F 107 29 104/66 100 05/18/18 05:15 99.0 F 106 25 83/52 100 05/18/18 05:01 99.1 F 109 26 73/52 98 05/18/18 05:00 99.1 F 111 28 97 05/18/18 04:46 99.1 F 113 29 88/44 93 05/18/18 04:30 99.0 F 27 78/38 05/18/18 04:24 99.0 F 116 28 74/49 94 05/18/18 04:16 98.8 F 115 28 65/43 95 05/18/18 04:01 98.8 F 116 28 60/32 95 05/18/18 04:00 98.8 F 116 28 95 05/18/18 03:45 98.8 F 115 28 81/30 93 05/18/18 03:31 98.8 F 118 43 63/37 92 05/18/18 03:15 98.8 F 117 37 66/39 90 05/18/18 03:01 98.8 F 119 28 89 05/18/18 03:00 98.8 F 118 29 82/30 90 05/18/18 02:45 99.0 F 118 30 58/42 90 05/18/18 02:30 99.0 F 117 27 80/52 91 05/18/18 02:16 99.1 F 120 28 75/34 91 05/18/18 02:01 99.3 F 119 27 82/52 91 05/18/18 02:00 99.3 F 120 26 91 05/18/18 01:45 99.5 F 118 26 72/50 91 05/18/18 01:30 99.7 F 119 24 64/38 94 05/18/18 01:15 99.9 F 117 24 73/42 91 05/18/18 01:06 99.9 F 25 70/43 05/18/18 01:00 99.9 F 26 05/18/18 00:55 96 05/18/18 00:54 99.9 F 111/87 05/18/18 00:53 99.9 F 122 26 70/43 90 05/18/18 00:45 100.6 F 112 16 99/47 96 05/18/18 00:39 99.9 F 111 25 69/26 05/18/18 00:31 99.9 F 113 22 100 05/18/18 00:04 100.6 F 112 16 97/41 100 05/18/18 00:03 100.6 F 111 23 100 05/17/18 23:19 100.6 F 110 26 97/41 100 05/17/18 23:05 112 17 99/44 100 05/17/18 23:00 113 18 84/51 96 05/17/18 22:53 101.8 F 126 16 60/42 95 05/17/18 22:45 101.8 F 128 28 77/44 100 Lactic Acid: 05/17/18 05/18/18 22:53 03:10 Lactic Acid 5.2 H* 4.9 H* - Cardiopulmonary Exam Capillary Refill: Delayed Respiratory: Symmetrical Chest Expansion and Respiratory Effort Cardiovascular: NL Sounds; No Murmurs; No JVD - Peripheral Pulse Exam Radial Pulses: Bilateral Diminished Pedal Pulses: Bilateral Diminished Femoral Pulses: Bilateral Normal - Skin Exam Skin Exam: Pale - [place] Coma Scale Best Eye Response: 4 - Spontaneous Best Motor Response: 6 - Obeys Commands Best Verbal Response: 4 - Confused Coma Scale Total: 14 Assess/Plan/Problems-Billing Assessment:
[2018-05-18] MEDS ORDERED: Lactated Ringers 1000 ML Bag* 1,000 ML IV SCH (09:00)
[2018-05-18] MEDS ORDERED: Aspirin 81 mg CHEW TAB* 81 MG TAB.CHEW PO SCH (09:00)
[2018-05-18] MEDS ORDERED: Pantoprazole* 80 mg IN NS 80 MG/250 ML BAG IVPB SCH (09:00)
[2018-05-18] MEDS ORDERED: Morphine VIAL* 10 MG/ML 1 ML VIAL IV PRN (13:19)
[2018-05-18 14:15] VITALS: BP 68/30
--- NOTE | 2018-05-18 14:17 | HP ---
ADMISSION HISTORY AND PHYSICAL: DATE OF ADMISSION: 05/17/18 CHIEF COMPLAINT: Weakness. HISTORY OF PRESENT ILLNESS: Ms. Ordaz is an 82-year-old woman with a history of dementia, who was seen in her primary care office today, where she complained of increasing weakness over the last several days. The daughter describes the patient has had progressive weakness, and is not getting out of bed much in the last two weeks. At baseline, she was living independently and walking with a walker, but now she is eating less and walks to the bathroom with a walker. The patient has a history of recurrent UTIs. The patient was treated for an UTI in mid April through the office. I believe she had nitrofurantoin. The patient does not currently have any urinary complaints. She has had in the last 24 hours full loss of appetite and some shortness of breath and vomiting. The patient has dementia and is a poor historian and is too sick to give a full history. 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 She also has depression. PAST SURGICAL HISTORY: Includes a left total knee replacement, tonsillectomy and past insertion of a port and removal of port. MEDICATIONS: Unknown by the daughter. She does take: 1. Levothyroxine. 2. Metoprolol. 3. Escitalopram. 4. Namenda, unknown doses. ALLERGIES: LIDOCAINE. FAMILY HISTORY: Notable for mother and sister with diabetes. Brother of cancer of unknown type. SOCIAL HISTORY: She is retired. Her daughter, Sara Sanon, is her healthcare proxy. She does not smoke. She does not drink alcohol or use recreational drugs. She is . REVIEW OF SYSTEMS: The patient has not had any fevers at home. The patient denies any chest pain or palpitations. The patient denies any cough, but has had shortness of breath. The patient denies any diarrhea or abdominal pain, but has had nausea and vomiting. The patient denies any dysuria or hematuria. Remainder of 14-point review of systems negative other than mentioned in the HPI. PHYSICAL EXAMINATION GENERAL: She is awake and lethargic, in no respiratory distress. VITAL SIGNS: Temperature is 38.8, pulse is 128, respirations are 20, blood pressure is 77/44, and oxygen saturation is 100% on nonrebreather. HEENT: Head is normocephalic and atraumatic. Sclerae anicteric. Pupils equal , round, and reactive to light and accommodation. Oropharynx is dry. No lesions. NECK: No JVD. No carotid bruits. No thyromegaly. LUNGS: Clear to auscultation and percussion bilaterally. HEART: Tachycardic and rhythm. No murmurs. ABDOMEN: Soft, tender suprapubic region. No masses. Positive bowel sounds. EXTREMITIES: No peripheral edema. Dorsalis pedis pulses are absent. Extremities are cool. SKIN: No rashes. She is alert. She is cooperative, but not oriented to place or time. DIAGNOSTIC STUDIES/LABORATORY DATA: Sodium 135, potassium 5.2, chloride 112, bicarb 14, BUN 55, creatinine 1.5, glucose 106, calcium 10.8, albumin 2.5, AST 10, ALT 5, bilirubin 0.5. White count 28.5, hemoglobin 8.0, hematocrit 26 %, and platelets of 265. INR 1.33, PTT 47.6. Urinalysis with 2+ blood, 2+ leuk esterase, 2+ white cells, 2+ red cells. EKG shows sinus tachycardia, no ischemia. Chest x-ray negative for infiltrates or effusions. ASSESSMENT AND PLAN: The patient with sepsis due to UTI. She will be admitted to the ICU if she has already received her 30 mL/kg in the ER of fluid infusion and has not had full recovery of her blood pressure. She has been given ceftriaxone, azithromycin for coverage of the UTI, which should be adequate for initial coverage. She will require further fluid resuscitation upon arrival in the ICU. For hypothyroidism, we will continue the thyroid medication and ask for correct doses in the morning from the pharmacy. Discussed further situation with the patient and her daughter and her other family. The patient confirmed do not resuscitate, do not intubate and daughter has re- signed the MOLST for the patient today, which matches what her wishes were at my office. For DVT prophylaxis, we will have sequential compression devices. [id number]/[facility] #: [id number] MTDD
[2018-05-18] MEDS ORDERED: Azithromycin IV(*) 500 MG in NS 0.9% 250 ML* 250 ML IVPB SCH (21:00)
[2018-05-18] MEDS ORDERED: Citalopram TAB* 20 MG PO SCH (21:00)
[2018-05-18] MEDS ORDERED: cefTRIAXone VIAL(*) 1,000 MG in NS 0.9% 50 ML* 50 ML IVPB SCH (21:00)
--- NOTE | 2018-05-19 00:04 | DS ---
CC: Eamon Talamantes MD DISCHARGE SUMMARY: DATE OF ADMISSION: 05/17/18 DATE OF DISCHARGE: 05/18/18 ATTENDING PHYSICIAN: Ottoniel Lacy DO PRIMARY CARE PHYSICIAN: Eamon Talamantes MD ADMISSION DIAGNOSIS: Hypotension. DISCHARGE DIAGNOSIS: Septic shock secondary to urinary tract infection. SECONDARY DIAGNOSES: 1. Acute renal failure. 2. Dementia. 3. Hypothyroid. CONSULTATIONS: None. PROCEDURES: Central line placement on 05/18/18. Chest x-ray 05/18/18. HISTORY OF PRESENT ILLNESS: This is an 82-year-old female with a history of dementia, who was seen i n her primary care office. She complained of increasing weakness over the past several days. The da ughter described the patient is having progressive weakness and not getting out of bed much in the la st 2 weeks. At baseline, she was living independently and walking with a walker, but now she is eati ng less and walks to the bathroom with a walker. Patient has history of recurrent UTIs. Patient was treated for UTI in mid April at the office with Tiffanie. Patient did not have any urinary compl aints on admission, but she did have loss of appetite, some shortness of breath, and vomiting. Diaz inman has dementia and was a poor historian and was unable to give a full history. HOSPITAL COURSE: Patient was found to be hypotensive in the emergency room. She was started on broa d-spectrum antibiotics and IV fluids. Her initial white count was 28 and hemoglobin of 8, her white count increased to 64. She was in acute renal failure with a creatinine of 1.5. She had marked meta bolic acidosis with carbon dioxide level of 14, which decreased down to 11. A central line was place d and she was started on vasopressors and despite aggressive care, her labs continued to deteriorate. Extensive discussion was held with the family at the bedside and they requested that the patient be made comfort care. The patient at 1443 on 05/18/18. PENDING LAB RESULTS: None. DISCHARGE DISPOSITION: . DIET: Not applicable. DISCHARGE MEDICATIONS: Not applicable. [id number]/[facility] #: [id number]
== END 2018-05-18 14:43 | disposition expired | DRG 871 ==
LOC: ED 22:32 → ICU 23:51
PROVIDERS: ADMIT Internal Medicine; ATTEND Internal Medicine
PROC: 05HN33Z Insertion of Infusion Device into Left Internal Jugular Vein, Percutaneous Approach (ICD-10-PCS; principal; 2018-05-18)
PROC: 3E033XZ Introduction of Vasopressor into Peripheral Vein, Percutaneous Approach (ICD-10-PCS; 2018-05-18)
PROC: 02H633Z Insertion of Infusion Device into Right Atrium, Percutaneous Approach (ICD-10-PCS; 2018-05-18)
DX: A41.9 Sepsis, unspecified organism (principal); R65.21 Severe sepsis with septic shock; R64 Cachexia; Z68.1 Body mass index [BMI] 19.9 or less, adult; N39.0 Urinary tract infection, site not specified; N17.9 Acute kidney failure, unspecified; Z66 Do not resuscitate; M10.9 Gout, unspecified; F03.90 Unspecified dementia, unspecified severity, without behavioral disturbance, psychotic disturbance, mood disturbance, and anxiety; E03.9 Hypothyroidism, unspecified; Z96.652 Presence of left artificial knee joint; R40.2363 Coma scale, best motor response, obeys commands, at hospital admission; R40.2143 Coma scale, eyes open, spontaneous, at hospital admission; R40.2243 Coma scale, best verbal response, confused conversation, at hospital admission; Z98.51 Tubal ligation status; Z87.891 Personal history of nicotine dependence; Z91.041 Radiographic dye allergy status; Z83.3 Family history of diabetes mellitus; Z88.2 Allergy status to sulfonamides; Z85.72 Personal history of non-Hodgkin lymphomas; Z87.440 Personal history of urinary (tract) infections
CPT/HCPCS: 36415; 71045; 80048; 80053; 81003; 81015; 83605; 84484; 85025; 85060; 85610; 85730; 86850; 86900; 86901; 86922; 87040; 87077; 87086; 87186; 87641; 93005; 99284; J0456; J0696; J2060; J2270